=== PATIENT | female | born 1985 | race Caucasian/White ===

== ENCOUNTER 2016-03-27 22:56 | Emergency (ER) | payer SELFPAY ==
[~2016-03-27 22:56] MED LIST: BACTDS PO; CEPH-443 PO
== END 2016-03-27 23:53 | disposition left against medical advice (07) ==
LOC: E/R 22:56
DX: Z53.21 Procedure and treatment not carried out due to patient leaving prior to being seen by health care provider (principal)

== ENCOUNTER 2018-09-21 15:33 | Inpatient (IN) | payer MEDICAID ==
[~2018-09-21] VITALS: Ht 165.1 cm; Wt 68.0 kg
[~2018-09-21 15:33] MED LIST changes: +ALPR0.254 PO; +BUPR1FIL SL; +DOCU-144 PO; +IBUP-1542 PO; +Nicotine (14 Mg/24 Hr) TRANSDERM
[2018-09-21 16:02] VITALS: Ht 165.1 cm; Wt 68.0 kg
[2018-09-21 16:03] VITALS: BP 122/76; PULSE 96; RESP 19
[2018-09-21] MEDS ORDERED: CARBOPROST 250 MCG INJ IM PRN (16:30)
[2018-09-21] MEDS ORDERED: OXYTOCIN 30 UNITS/LR 500 ML IV PRN (16:30)
[2018-09-21] MEDS ORDERED: METHYLERGONOVINE 0.2 MG INJ IM PRN (16:30)
[2018-09-21] MEDS ORDERED: MISOPROSTOL 200 MCG TAB PR PRN (16:30)
[2018-09-21] MEDS ORDERED: OXYTOCIN 30 UNITS/LR 500 ML IV SCH (16:30)
[2018-09-21] MEDS ORDERED: CEFAZOLIN 2 GM/50 ML (PMX) 50 ML IVPB SCH (16:30)
--- NOTE | 2018-09-21 18:09 | TRIAGE ---
OB Triage Datetime Report Generated by CPN: 09/21/2018 18:09 Datetime: 09/21/2018 17:19 Vaginal Exam Dilatation (cms): 0.0 Exam By: KHEMANI Vaginal Bleeding: None Cervix, Position: Posterior Datetime: 09/21/2018 17:00 Stage of : OB Triage Maternal Assessment Level of Consciousness: Keenly Alert, Responsive Labor Evaluation Frequency: IRREGULAR Monitor Mode: External Duration (sec)2399: 70-90 Quality: Moderate Resting Tone [place]: Relaxed Heart Rate FHR Baseline Rate: 145 Monitor Mode: External US Variability: Moderate 6-25 bpm Accelerations: 15X15 Decelerations: None Category: Category I Pain Assessment Pain Scale: 7 Pain Presence: Intermittent Pain Type: Cramping Pain Location: Abdomen Pain Goal: 3 Membrane Status: Intact Vaginal Bleeding: None Datetime: 09/21/2018 16:09 Assessment Type: Triage Maternal Assessment Level of Consciousness: Keenly Alert, Responsive DTR's/Clonus: DTRs 2+; No Clonus Headache: Denies Blurred Vision: No Respiratory Effort: Unlabored; Regular Rhythm; Equal Expansion Breath Sounds, Left: Clear and Equal Breath Sounds, Right: Clear and Equal Nausea/Vomiting: Denies RUQ Epigastric Pain: Denies Lower Extremities Edema: None Degree: None Upper Extremities Edema: None Degree: None Facial Edema: None Fall Risk Assessment History of Falling: (0) No Secondary Diagnosis: (0) No Ambulatory Aid: (0) Bedrest/Nurse Assist IV Therapy: (0) No Gait: (0) Normal/Bedrest/Immobile Mental Status: (0) Oriented to Own Ability Fall Score: 0 Fall Risk Score Definition: No Risk: No action required Datetime: 09/21/2018 16:07 Time of Arrival: 09/21/2018 15:29 EGA: 40.4 Arrived By: Ambulatory Arrived From: Home Chief Complaint: UC'S Movement: Present Contractions: Denies/Absent Time Contractions Began: 09/19/2018 12:00 Rupture of Membranes: Denies Vaginal Bleeding: None Vaginal Discharge: Denies Recent Sexual Intercouse: Denies Abdominal Trauma: Not Applicable Patient Complaints: Contractions; Cramping Time Provider Notified: 09/21/2018 16:09 Provider Notified: LINDA Initial Plan: NST BPP EFW Datetime: 09/21/2018 15:51 Monitor Mode: External Monitor Mode: External US
[2018-09-21] MEDS ORDERED: DIPHENHYDRAMINE 1%/ZINC 28.3 GM CR TOP PRN (19:30)
[2018-09-21] MEDS ORDERED: LACTATED RINGER'S 1,000 ML IV ONE (20:30)
[2018-09-21] MEDS: LACTATED RINGER'S 1,000 ML IV SCH (20:37)
[2018-09-21] MEDS: NICOTINE (14 MG/24 HR) PATCH TRANSDERM SCH (20:40)
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
[2018-09-21] MEDS: CEPHALEXIN 500 MG CAP PO SCH (21:55)
[2018-09-22] MEDS: LACTATED RINGER'S 1,000 ML IV SCH ×3 (01:48→20:04)
[2018-09-22] MEDS: CEPHALEXIN 500 MG CAP PO SCH ×2 (09:15→20:50)
--- NOTE | 2018-09-22 14:58 | QN ---
Documentation Comment 35-40wks GA wh Hx of Repeat c/section and Drug Abuse. NST reassuring [place] Occasional CTXs Pelvic Deferred -->Follow up the records from [place] -->Close Observation and monitoring PIOTR JORGE M.D. Sep 22, 2018 14:58
[2018-09-22] MEDS: NICOTINE (14 MG/24 HR) PATCH TRANSDERM SCH (20:53)
[2018-09-22] MEDS ORDERED: DIPHENHYDRAMINE 25 MG CAP PO SCH (21:31)
[2018-09-22] MEDS: PRENATAL VITAMIN PO SCH (21:39)
[2018-09-23] MEDS: LACTATED RINGER'S 1,000 ML IV SCH ×2 (03:03→11:17)
[2018-09-23] MEDS ORDERED: CEFAZOLIN 2 GM/50 ML (PMX) 50 ML IVPB SCH ×2 (07:00→09:00)
--- NOTE | 2018-09-23 08:37 | PN ---
Date/Time of Note Date/Time of Note DATE: 09/23/18 TIME: 08:37 OB Subjective Subjective Subjective Patient without complaints EFM 130/mod yamilka/+ accels/no decels toco irregular 39.4 by third trimester US DARON 1. suscpected IUGR and h/o CS will be consented for repeat section S/D ratios within normal limits 2. suboxone use-verify and continue. pain management 3. hepatitis c-precautions. expectant 4. anxiety MILESTONE,CEM MALLORY Sep 23, 2018 08:37
[2018-09-23] MEDS ORDERED: CARBOPROST 250 MCG INJ IM PRN ×2 (09:00→16:30)
[2018-09-23] MEDS ORDERED: OXYTOCIN 30 UNITS/LR 500 ML IV PRN ×2 (09:00→16:30)
[2018-09-23] MEDS ORDERED: OXYTOCIN 30 UNITS/LR 500 ML IV SCH (09:00)
[2018-09-23] MEDS ORDERED: MISOPROSTOL 200 MCG TAB PR PRN ×2 (09:00→16:30)
[2018-09-23] MEDS ORDERED: METHYLERGONOVINE 0.2 MG INJ IM PRN ×2 (09:00→16:30)
--- NOTE | 2018-09-23 11:45 | PREAC ---
Date/Time of Note Date/Time of Note DATE: 09/23/18 TIME: 11:44 Anesthesia Eval and Record Evaluation Time Pre-Procedure Interview DATE: 09/23/18 TIME: 11:44 Age 33 Sex female NPO: 8 hrs Preoperative diagnosis IUP Planned procedure repeat Csection Past Medical History Past Medical History: Includes : : Surgery & Anesthesia Issues No known issue Meds Anticoagulation: No Beta Hany within 24 hr: No Reason Beta Hany not given: Pt. not on B-Hany Reported Medications Buprenorphine Hcl-Naloxone Hcl (Suboxone SL) 2-0.5 Mg Film, 1 FILM SL, FILM 09/21/18 Alprazolam* (Alprazolam*) 0.25 Mg Tablet, 0.25 MG PO Q8, TAB 09/21/18 Current Medications Oxytocin/Lactated Ringer's 500 ml @ 125 mls/hr POST IV ; Start 09/21/18 at 16:30 Diphenhydramine/ Zinc Oxide (Benadryl 1% Cr) 1 applic Q6 PRN TOP ITCHING Last administered on 09/21/18at 20:38; Admin Dose 1 APPLIC; Start 09/21/18 at 19:30 Nicotine (Nicoderm 14 Mg/ 24hr) 1 patch DAILY TRANSDERM Last administered on 09/22/18at 20:53; Admin Dose 1 PATCH; Start 09/22/18 at 09:00 Lactated Ringer's 1,000 ml @ 125 mls/hr Q8H IV Last administered on 09/23/18at 11:17; Admin Dose 125 MLS/HR; Start 09/21/18 at 20:30 Prenat Multivit/ Williamson/Iron/Folic Ac () 1 tab DAILY PO Last administered on 09/22/18at 21:39; Admin Dose 1 TAB; Start 09/22/18 at 21:30 Diphenhydramine HCl (Benadryl) 25 mg HS PO Last administered on 09/22/18at 21:39; Admin Dose 25 MG; Start 09/22/18 at 21:31 Cefazolin Sodium/ Dextrose 50 ml @ 100 mls/hr Q8 IVPB Last administered on 09/23/18at 06:51; Admin Dose 100 MLS/HR; Start 09/23/18 at 07:00; Stop 09/25/18 at 07:00 Cefazolin Sodium/ Dextrose 50 ml @ 100 mls/hr ONCE IVPB ; Start 09/23/18 at 09:00 Oxytocin/Lactated Ringer's 500 ml @ 125 mls/hr POST IV ; Start 09/23/18 at 09:00 Oxytocin/Lactated Ringer's 500 ml @ 0 mls/hr ONCE PRN IV .VAGINAL BLEEDING; Start 09/23/18 at 09:00 Methylergonovine Maleate (Methergine) 0.2 mg ONCE PRN IM .VAGINAL BLEEDING; Start 09/23/18 at 09:00 Carboprost Tromethamine (Hemabate) 250 mcg ONCE PRN IM .VAGINAL BLEEDING; Start 09/23/18 at 09:00 Misoprostol (Cytotec) 1,000 mcg ONCE PRN MO .VAGINAL BLEEDING; Start 09/23/18 at 09:00 Meds reviewed: Yes Allergies Coded Allergies: No Known Allergy (Unverified , 09/21/18) Allergies Reviewed: Yes Labs/Studies Labs Reviewed: Reviewed by anesthesiologist Result Diagram: 09/21/18 1640 09/21/18 1633 test: Positive Studies: ECG Pre-procedure Exam Last vitals Vital Signs Date Temp Pulse Resp B/P (MAP) Pulse Ox O2 O2 Flow FiO2 Time Delivery Rate 09/21/18 98.4 96 19 122/76 Room Air 16:03 (91) Airway: Adequate mouth opening, Adequate thyromental dist Mallampati: Mallampati II Teeth: Normal Lung: Normal Heart: Normal ASA Physical Status ASA physical status: 2 Emergency: None Planned Anesthetic Neuraxial: Spinal Planned Pain Management Sub-arachniod narcotics, Parenteral pain med Pre-operative Attestations Prior to commencing anesthesia and surgery, the patient was re-evaluated, there was verification of: *The patient's identity *The results of appropriate recent lab work and preoperative vital signs *The above evaluation not changing prior to induction *Anesthetic plan, risk benefits, alternative and complications discussed with patient/family; questions answered; patient/family understands, accepts and wishes to proceed. BETH HIGH MD Sep 23, 2018 11:45
[2018-09-23] MEDS ORDERED: ONDANSETRON 4 MG INJ ONE (11:47)
[2018-09-23] MEDS ORDERED: morphine SULFATE/PF (10 MG/10 ML) INJ ONE (11:47)
[2018-09-23] MEDS ORDERED: OXYTOCIN 10 UNIT INJ ONE (11:47)
--- NOTE | 2018-09-23 12:57 | OPR ---
Operative Report Planned Procedure Procedure date Sep 23, 2018 Procedure(s) Performed by see signature line Firearms Inspector: LUIS A GARCIA MD Pre-procedure diagnosis IUGR history of CS [id number] Anesthesia Type: [id number] spinal Post-Procedure Post-procedure diagnosis Same Findings Live Baby [], Apgars [] and [], weight [], position [], [] presentation []cord. Estimated Blood Loss: 600 - 700 mls Specimen(s) none Grafts/Implant(s) none Complication(s) none Procedure Description Procedure Description Pre-Operative Diagnosis: 1. 32 year old with IUGR at 39.4 weeks by 29 week ultrasound Post-Operative Diagnosis: Same Procedure(s): Low transverse section Surgeon: Dr. Brewer Firearms Inspector: Dr. Corbett Anesthesia: Vital Findings: female infant OP presentation weighing 2695 g with Apgars of 8 and 9 at 1 and 5 minutes respectively. No nuchal cord. Body cord x 1. Normal appearing tubes and ovaries with paratubal cysts noted bilaterally. Placenta intact w 3VC. Indications: Repeat section Description of Procedure: After informed consent was obtained, the patient was taken to the operating room where anesthesia was initiated. The patient was placed in the dorsal, supine position with left lateral tilt to avoid aorto-caval compression. Prior to the beginning of the procedure, sequential compression devices were placed on the patient's lower extremities and activated. A ceballos catheter was placed in the bladder without difficulty. Ancef and azithromycin were administered. A surgical pause identified the patient and procedure and all parties were in agreement. The patient's abdomen was prepped and draped in sterile fashion. An Allis skin test was performed to ensure adequate anesthesia. A 10 cm Pffannenstiel skin incision was made 2 cm above the pubic symphysis using a scalpel and carried down through to the level of the fascia using bovie. The fascia was scored in the midline and extended bilaterally. The fascial incision was grasped with Abelardo clamps, elevated, and sharply and bluntly dissected from the rectus muscles superiorly to the level of the umbillicus and inferiorly to the level of the pubic symphysis. The rectus muscles were then in the midline, and the peritoneum was tented up and entered bluntly. The peritoneal incision was extended superiorly and inferiorly with good visualization of the bladder An Ray retractor was then inserted. A hysterotomy was made in a semicircular fashion using a scalpel and extended bilaterally with blunt dissection. Amniotomy was performed and fluid was noted to be clear. The infant's head was then grasped, elevated to the level of the incision and delivered atraumatically in OA presentation, followed by the body which was delivered without difficulty. The infant was suctioned, cord clamped x 2 and cut. was handed to the nursing staff. Cord blood was collected. The placenta was expressed manually. The uterus was cleared of all clots and debris. The uterine incision was repaired with 0-monocryl in a running locking fashion. A second layer of 0-monocryl was utilizied. One figure of eight 2-0 monocryl was utilized on the right lateral aspect of the uterine incision. Hemostasis was noted. The Ray retractor was removed. The uterine incision was noted to be hemostatic. The fascia was reapproximated with 0- monocryl. The subcutaneous tissue was closed with 2-monocryl. The skin was reapproximated with 3-o monocryl on a rayne. Dermabond was placed on the incision. The uterus was firm at the end of the procedure. All counts were correct x 2 at the end of the procedure. Estimated Blood Loss: 700 ml; no blood replaced Drains: Ceballos catheter with 3500 ml of clear urine at end of procedure Fluids Given: 1500 ml Specimens/ Cultures: cord blood, placenta Implants: None Complications: None Disposition: recovery in hemodynamically stable. Condition: stable CEM BREWER MD Sep 23, 2018 12:57
--- NOTE | 2018-09-23 13:07 | PAC ---
Date/Time of Note Date/Time of Note DATE: 09/23/18 TIME: 13:06 Post-Anesthesia Notes Post-Anesthesia Note Last documented vital signs Vital Signs Date Temp Pulse Resp B/P (MAP) Pulse Ox O2 O2 Flow FiO2 Time Delivery Rate 09/21/18 98.4 96 19 122/76 Room Air 16:03 (91) Activity: WNL Respiratory function: WNL Cardiovascular function: WNL Mental status: Baseline Pain reasonably controlled: Yes Hydration appropriate: Yes Nausea/Vomiting absent: Yes Comments 108/67, P:78, Spo;100%, T:98,8 BETH HIGH MD Sep 23, 2018 13:07
[2018-09-23] MEDS ORDERED: morphine 2 MG INJ IV PRN ×2 (13:30→17:00)
[2018-09-23] MEDS ORDERED: ONDANSETRON 4 MG INJ IV PRN ×2 (13:30→17:00)
[2018-09-23] MEDS ORDERED: NALOXONE (0.4 MG/ML) INJ IV PRN ×2 (13:30→17:00)
[2018-09-23] MEDS ORDERED: DIPHENHYDRAMINE 50 MG INJ IV PRN ×2 (13:30→17:00)
[2018-09-23] MEDS ORDERED: KETOROLAC 30 MG INJ IV PRN ×2 (13:30→17:00)
[2018-09-23] MEDS: PRENATAL VITAMIN PO SCH (15:15)
[2018-09-23 15:30] VITALS: BP 115/73; PULSE 88; RESP 18
[2018-09-23 16:00] VITALS: BP 116/70; RESP 20
[2018-09-23] MEDS: OXYTOCIN 30 UNITS/LR 500 ML IV SCH ×2 (16:13→17:45)
[2018-09-23] MEDS ORDERED: NACL 0.9% 3 ML SYG IV SCH (16:30)
[2018-09-23] MEDS ORDERED: NA PHOSPHATE/BIPHOS 133 ML ENEMA PR PRN (16:30)
[2018-09-23] MEDS: IBUPROFEN 600 MG TAB PO SCH (17:46)
[2018-09-23 20:00] VITALS: BP 118/64; PULSE 85; RESP 18
[2018-09-23] MEDS ORDERED: DIPHENHYDRAMINE 25 MG CAP PO SCH (21:00)
[2018-09-24 04:00] VITALS: BP 119/84; PULSE 97; RESP 18
[2018-09-24] MEDS: IBUPROFEN 600 MG TAB PO SCH ×5 (04:04→23:45)
[2018-09-24] MEDS: OXYCODONE/ACETAMINOPHEN (5/325) TAB PO PRN ×2 (09:18→15:54)
--- NOTE | 2018-09-24 12:36 | QN ---
Documentation Comment POD#1 is stable afebrile No VB +Flatus +voids VS stable Gen NAD Abd soft NT ND Incision is intact Genitalia No blood at perineum --->Ambulation PIOTR JORGE M.D. Sep 24, 2018 12:36
[2018-09-24 16:00] VITALS: BP 95/50; PULSE 59; RESP 18
[2018-09-24 20:20] VITALS: BP 131/78; PULSE 84; RESP 18
[2018-09-24] MEDS: NICOTINE (14 MG/24 HR) PATCH TRANSDERM SCH (20:53)
[2018-09-25 04:00] VITALS: BP 115/64; PULSE 82; RESP 18
[2018-09-25] MEDS: OXYCODONE/ACETAMINOPHEN (5/325) TAB PO PRN ×3 (04:39→21:02)
[2018-09-25] MEDS: IBUPROFEN 600 MG TAB PO SCH ×3 (05:52→17:52)
[2018-09-25 08:00] VITALS: BP 116/70; PULSE 76; RESP 20
[2018-09-25] MEDS ORDERED: MAGNESIUM HYDROXIDE 30ML CUP PO PRN (13:00)
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
[2018-09-25 16:15] VITALS: BP 131/85; PULSE 80; RESP 18
[2018-09-25] MEDS ORDERED: ALPRAZOLAM 0.25 MG TAB PO PRN (16:30)
--- NOTE | 2018-09-25 18:11 | PN ---
Date/Time of Note Date/Time of Note DATE: 09/25/18 TIME: 18:08 OB Subjective Subjective Subjective POD# 2 Patient is doing well. She denies nausea, vomiting, shortness of breath, chest pain, headache. She has been ambulating without difficulty, tolerating regular diet. Pain is well controlled on current medications OB Objective Objective Objective VS - Last 72 Hours, by Label Date Temp Pulse Resp B/P (MAP) Pulse Ox O2 O2 Flow FiO2 Time Delivery Rate 09/25/18 97.6 80 18 131/85 16:15 (100) 09/25/18 97.8 76 20 116/70 Room Air 08:00 (85) 09/25/18 98.9 82 18 115/64 Room Air 04:00 (81) 09/24/18 97.9 84 18 131/78 Room Air 20:20 (95) 09/24/18 99.0 59 18 95/50 (65) Room Air 16:00 09/24/18 98.6 97 18 119/84 98 Room Air 04:00 (96) 09/23/18 98.4 85 18 118/64 Room Air 20:00 (82) 09/23/18 98.0 20 116/70 99 16:00 (85) 09/23/18 98.2 88 18 115/73 98 Room Air 15:30 (87) General: AAO X 3, comfortable, NAD, appropriate mood and affect. ABD: +BS. Soft, non-tender. Uterus 2 cm below umbilicus Incision: Clear, dry, intact. No erythema, drainage or induration. Flank: No CVA tenderness (B/L) LE: Mild edema. No clubbing, cyanosis, thigh or calf tenderness (B/L). Homans 'sign is negative OB Assessment/Plan Other plan: 32-year-old 4 para 2-0-2-2 at 40 weeks and 4 days. S/p delivery POD#1 - AF, VSS - Baby is doing well, at bed side. She is bonding well - Contraception methods with R/B/A/FR discussed - Continue care KAI HACKETT Sep 25, 2018 18:11
[2018-09-25 20:30] VITALS: BP 124/80; PULSE 76; RESP 18
[2018-09-25] MEDS: NICOTINE (14 MG/24 HR) PATCH TRANSDERM SCH (21:03)
[2018-09-26] MEDS: IBUPROFEN 600 MG TAB PO SCH ×3 (00:20→12:21)
[2018-09-26] MEDS: OXYCODONE/ACETAMINOPHEN (5/325) TAB PO PRN ×2 (02:45→11:42)
[2018-09-26 04:00] VITALS: BP 116/63; PULSE 86; RESP 18
[2018-09-26 08:00] VITALS: BP 117/56; PULSE 72; RESP 18
--- NOTE | 2018-09-26 08:52 | DS ---
Date/Time of Note Date/Time of Note DATE: 09/26/18 TIME: 08:51 Obstetrical Discharge Record Final Diagnosis Final Diagnosis: Term delivered Other Final Diagnosis Subjective: Tolerating regular diet. Voiding. Ambulating. Vaginal bleeding within normal limits. Bottle feeding. + Flatus and bowel movement. Complaints: none Mode of delivery: Contraception: unknown Objective: Vital Signs Date Temp Pulse Resp B/P (MAP) Pulse Ox O2 O2 Flow FiO2 Time Delivery Rate 09/26/18 97.9 86 18 116/63 04:00 (80) General: No apparent distress Breast: Normal Fundus: 2 fingerbreadths below the umbilicus Extremities: Nontender to palpation Incision: c/d/i Assessment/plan: 1. Postoperative day 1 from a delivery-Admission on 09/21/18 at term. Underwent section on 09/23/18. Her hospital course was complicated by hepatitis and suboxone comorbidites. Prior to discharge, her vitals were stable, h/h stable. She was advised to follow up in 1 week. advised on infection and bleeding precautions. 2. suboxone use-continue with prescribing physician. 3. hepatitis c-expectant 4. depression/anxiety-s/p psych consult. continue zoloft and xanax. social media designer will be making an appointment for outpatient follow up. Section Section: Repeat Condition on Discharge Physical Assessment Patient Condition: Stable MILESTONE,CEM MALLORY Sep 26, 2018 08:52
[2018-09-26] MEDS ORDERED: SERTRALINE 100 MG TAB PO SCH (09:00)
[2018-09-26] MEDS ORDERED: DIPHTH/TET/ACEL PERTUSS (ADULT) 0.5 ML VIAL IM* ONE (09:00)
[2018-09-26] MEDS ORDERED: MEASLES,MUMPS,RUBELLA VACCINE INJ SC* ONE (09:00)
== END 2018-09-26 14:54 | disposition home or self-care (01) | DRG 787 ==
LOC: L-D 15:33 → OBT 15:33 → L-D 18:02 → PP1 09-23 15:30
PROVIDERS: ADMIT Obstetrics & Gynecology Gynecology; ATTEND Obstetrics & Gynecology Gynecology
PROC: 10D00Z1 Extraction of Products of Conception, Low, Open Approach (ICD-10-PCS; principal; 2018-09-23 12:15)
DX: O48.0 Post-term pregnancy (principal); O98.413 Viral hepatitis complicating pregnancy, third trimester; O65.5 Obstructed labor due to abnormality of maternal pelvic organs; O34.211 Maternal care for low transverse scar from previous cesarean delivery; O99.343 Other mental disorders complicating pregnancy, third trimester; F41.9 Anxiety disorder, unspecified; B19.20 Unspecified viral hepatitis C without hepatic coma; Z3A.40 40 weeks gestation of pregnancy; Z37.0 Single live birth
CPT/HCPCS: 76815; 76818; 76820; 80053; 80307; 85025; 85610; 85730; 86592; 86703; 86762; 86803; 86850; 86900; 86901; 87340; 88307; 99464; G0463; J0690; J1885; J2274; J2405; J2590; J7120